=== PATIENT | male | born 1965 | race African-American/Black ===

== ENCOUNTER 2018-09-17 12:07 | Inpatient (IN) | payer OTHER ==
[2018-09-17 14:30] VITALS: BMI 32.8
--- NOTE | 2018-09-17 16:23 | HP ---
COWS - Scale Resting Pulse: 1= SC 81-100 Sweatin= Chills/Flushing Restless Observation: 0= Sits Still Pupil Size: 1= Pupils >than Normal Bone or Joint Aches: 1= Mild Discomfort Runny Nose/ Eye Tearin= Runny Nose/Eyes GI Upset > 30mins: 2= Nausea/Diarrhea Tremor Observation: 0= None Yawning Observation: 4= Several Times/Minute Anxiety or Irritability: 2=Irritable/Anxious Goose Flesh Skin: 0=Smooth Skin COWS Score: 14 CIWA Score Nausea/Vomitin Muscle Tremors: 2 Anxiety: 3 Agitation: 0-Normal Activity Paroxysmal Sweats: 2 Orientation: 1-Uncertain about Date Tacttile Disturbances: 0-None Auditory Disturbances: 0-None Visual Disturbances: 0-None Headache: 0-None Present CIWA-Ar Total Score: 11 - Admission Criteria OASAS Guidelines: Admission for Medically Managed Detox: Requires at least one of the followin. CIWA greater than 12 2. Seizures within the past 24 hours 3. Delirium tremens within the past 24 hours 4. Hallucinations within the past 24 hours 5. Acute intervention needed for co occurring medical disorder 6. Acute intervention needed for co occurring psychiatric disorder 7. Severe withdrawal that cannot be handled at a lower level of care (continued vomiting, continued diarrhea, abnormal vital signs) requiring intravenous medication and/or fluids 8. Patient presents the following: Acute intervention needed for co-occurring med or psych disorder Admission Criteria Met: Admission criteria met Admission ROS [facility] - [facility] Chief Complaint: alcohol and heroin detox Allergies/Adverse Reactions: Allergies Allergy/AdvReac Type Severity Reaction Status Date / Time Sulfa (Sulfonamide Allergy Severe Rash Verified 09/17/18 15:28 Antibiotics) lactose [Lactose] AdvReac Unknown LACTOSE Verified 09/17/18 15:28 INTOLERANT History of Present Illness: 53 yo male with hx of nicotine, heroin (nasal), cocaine, alcohol dependence is here seeking detox. PMMX: HTN, HIV, Depression. Denies hx of seizures, overdose or blackouts. Longest period of sobriety three years, reports relapse one year ago. Exam Limitations: No Limitations - Ebola screening Have you traveled outside of the country in the last 21 days: No Have you had contact with anyone from an Ebola affected area: No Have you been sick,other than usual withdrawal symptoms: No - Review of Systems Constitutional: Loss of Appetite, Changes in sleep (no sleep past three days), Other (fatigue) EENT: reports: Nose Congestion Respiratory: reports: No Symptoms reported Cardiac: reports: No Symptoms Reported GI: reports: Constipated (last BM this morning), Nausea, Poor Appetite, Indigestion : reports: No Symptoms Reported Musculoskeletal: reports: Back Pain (low back), Joint Pain Integumentary: reports: No Symptoms Reported Endocrine: reports: Increased Thirst Hematology: reports: See HPI Psychiatric: reports: Orientated x3 Other Systems: Reviewed and Negative Patient History - Patient Medical History Hx Anemia: No Hx Asthma: No Hx Chronic Obstructive Pulmonary Disease (COPD): No Hx Cancer: No Hx Cardiac Disorders: No Hx Congestive Heart Failure: No Hx Hypertension: Yes Hx Hypercholesterolemia: No Hx Pacemaker: No HX Cerebrovascular Accident: No Hx Seizures: No Hx Dementia: No Hx Diabetes: Yes Hx Gastrointestinal Disorders: No Hx Liver Disease: No Hx Genitourinary Disorders: No Hx Sexually Transmitted Disorders: No Hx Renal Disease (ESRD): No Hx Thyroid Disease: No Hx Human Immunodeficiency Virus (HIV): Yes (since 1995) Hx Hepatitis C: No Hx Depression: Yes Hx Suicide Attempt: No Hx Bipolar Disorder: No Hx Schizophrenia: No - Patient Surgical History Past Surgical History: Yes Hx Neurologic Surgery: No Hx Cataract Extraction: No Hx Cardiac Surgery: No Hx Lung Surgery: No Hx Breast Surgery: No Hx Breast Biopsy: No Hx Abdominal Surgery: No Hx Appendectomy: No Hx Cholecystectomy: No Hx Genitourinary Surgery: No Hx Section: No Hx Orthopedic Surgery: Yes (right ankle in 2000 for fx) Anesthesia Reaction: No - PPD History Previous Implant?: No Documented Results: Positive w/o proof Results: PPD+ 1995 - Reproductive History Patient : No - Smoking Cessation Smoking history: Current every day smoker Have you smoked in the past 12 months: Yes Aproximately how many cigarettes per day: 20 Cigars Per Day: 0 Hx Chewing Tobacco Use: No Initiated information on smoking cessation: Yes 'Breaking Loose' booklet given: 09/17/18 - Substance & Tx. History Hx Alcohol Use: Yes Hx Substance Use: Yes Substance Use Type: Heroin Hx Substance Use Treatment: Yes ([facility] 2013) - Substances Abused Heroin Route: Inhalation Frequency: Daily Amount used: 3 bags Age of first use: 31 Date of Last Use: 09/17/18 Alcohol Route: Oral Frequency: Daily Amount used: 1/4 vodka, 2 beers ( 40 oz bottles. Age of first use: 14 Date of Last Use: 09/17/18 Cocaine Route: Smoking Frequency: Daily Amount used: $150 Age of first use: 23 Date of Last Use: 09/17/18 Family Disease History - Family Disease History Family History: Denies Admission Physical Exam [facility] - Vital Signs Vital Signs: Vital Signs - 24 hr 09/17/18 14:26 Temperature 97.1 F L Pulse Rate 81 Respiratory 20 Rate Blood Pressure 125/75 - Physical General Appearance: Yes: Appropriately Dressed, Sweating, Anxious HEENTM: Yes: EOMI, Hearing grossly Normal, Normal ENT Inspection, Normocephalic , Normal Voice, GIANNI, Pharynx Normal, Tm's normal, Rhinorrhea Respiratory: Yes: Chest Non-Tender, Lungs Clear, Normal Breath Sounds, No Respiratory Distress, No Accessory Muscle Use Neck: Yes: No masses,lesions,Nodules, Trachea in good position Breast: Yes: Breast Exam Deferred Cardiology: Yes: Regular Rhythm, Regular Rate Abdominal: Yes: Normal Bowel Sounds, Non Tender, Flat, Soft Genitourinary: Yes: Within Normal Limits Back: Yes: Normal Inspection Musculoskeletal: Yes: full range of Motion, Gait Steady, Pelvis Stable, Back pain Extremities: Yes: Normal Capillary Refill, Normal Inspection, Normal Range of Motion 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 NML intact, Fully Oriented, Alert, Motor Strength 5/5, Depressed Affect Integumentary: Yes: Normal Color, Warm, Diaphoresis Lymphatic: Yes: Within Normal Limits - Diagnostic (1) HIV (human immunodeficiency virus infection) Current Visit: Yes Status: Acute (2) Alcohol dependence with uncomplicated withdrawal Current Visit: Yes Status: Acute (3) Opioid dependence with withdrawal Current Visit: Yes Status: Acute (4) Essential hypertension Current Visit: No Status: Acute (5) Low back pain Current Visit: Yes Status: Acute Qualifiers: Chronicity: acute Back pain laterality: midline (6) Nicotine dependence Current Visit: No Status: Acute Cleared for Admission [facility] - Detox or Rehab [facility] Level of Care: Medically Managed Detox Regimen/Protocol: Methadone/Librium [facility] Breath Alcohol Content Breath Alcohol Content: 0 Urine Drug Screen - Results Drug Screen Negative: No Urine Drug Screen Results: ANDREW-Cocaine, OPI-Opiates, BZO-Benzodiazepines, OXY- Oxycodone Inpatient Rehab Admission - Rehab Decision to Admit Inpatient rehab admission?: No
[2018-09-17] MEDS ORDERED: BISMUTH SUBSALICYLATE 524 MG/30 ML UD PO PRN (16:25)
[2018-09-17] MEDS ORDERED: IBUPROFEN 600 MG TABLET (FP) PO PRN (16:25)
[2018-09-17] MEDS ORDERED: MENTHOL/PHENOL 1 EACH UD MM PRN (16:25)
[2018-09-17] MEDS ORDERED: METHOCARBAMOL 500 MG TABLET PO PRN (16:25)
[2018-09-17] MEDS ORDERED: chlordiazePOXIDE HCL 25 MG CAPSULE PO PRN (16:25)
[2018-09-17] MEDS ORDERED: NICOTINE POLACRILEX 4 MG GUM BUC PRN (16:25)
[2018-09-17] MEDS ORDERED: MAGNESIUM CITRATE 300 ML BOTTLE PO PRN (16:25)
[2018-09-17] MEDS ORDERED: MAG HYDROX/AL HYDROX/SIMETH 30 ML UNIT-DOSE CUP PO PRN (16:25)
[2018-09-17] MEDS ORDERED: MAGNESIUM HYDROX 2400MG/30ML ORAL SUSPENSION 30 ML CUP PO PRN (16:25)
[2018-09-17] MEDS ORDERED: ACETAMINOPHEN 325 MG TABLET (FP) PO PRN ×2 (16:25)
[2018-09-17] MEDS ORDERED: METHADONE HCL 10 MG TABLET (FOR DETOX USE ONLY) PO ONE ×2 (17:30→23:00)
[2018-09-17] MEDS: chlordiazePOXIDE HCL 25 MG CAPSULE PO SCH (22:45)
[2018-09-17] MEDS: THIAMINE HCL 100 MG TABLET (FP) PO SCH (22:46)
[2018-09-18] MEDS: chlordiazePOXIDE HCL 25 MG CAPSULE PO SCH ×4 (05:51→22:42)
[2018-09-18] MEDS ORDERED: METHADONE HCL 5 MG TABLET (FOR DETOX USE ONLY) PO ONE (10:00)
[2018-09-18] MEDS: PRENATAL VITAMINS W/ FOLIC ACID TABLET (FP) PO SCH (10:56)
[2018-09-18] MEDS: amLODIPine BESYLATE 10 MG TABLET (FP) PO SCH (10:56)
[2018-09-18] MEDS: ASPIRIN COATED 81 MG TABLET.EC PO SCH (10:56)
[2018-09-18] MEDS: NICOTINE 21 MG/24 HOURS TOPICAL PATCH TD SCH (10:56)
[2018-09-18] MEDS: cloNIDine HCL 0.1 MG TABLET PO PRN (10:58)
[2018-09-18 11:03] LABS: HEMATOCRIT 38.6 % (35.4-49); HEMOGLOBIN 12.6 GM/dL (11.7-16.9); MCH 29.1 pg (25.7-33.7); MCHC 32.6 g/dl (32.0-35.9); MEAN CELL VOLUME 89.5 fl (80-96); MEAN PLT VOLUME 7.9 fl (7.5-11.1); PLATELET COUNT 198 K/MM3 (134-434); RBC 4.31 M/mm3 (4.00-5.60); RDW 15.3 % (11.9-15.9); WHITE BLOOD COUNT 5.7 K/mm3 (4.0-10.0)
--- NOTE | 2018-09-18 11:03 | EKG ---
Test Reason : Blood Pressure : / mmHG Vent. Rate : 070 BPM Atrial Rate : 070 BPM P-R Int : 116 ms QRS Dur : 084 ms QT Int : 400 ms P-R-T Axes : 064 069 054 degrees QTc Int : 432 ms NORMAL SINUS RHYTHM NORMAL ECG NO PREVIOUS ECGS AVAILABLE Confirmed by STEPH GAN MD ([id number]) on 09/18/2018 11:02:52 AM Referred By: Confirmed By:STEHP GAN MD
[2018-09-18 12:37] LABS: ALBUMIN 2.6 g/dl (3.4-5.0); ALK PHOS 78 U/L (45-117); ANION GAP 5 MMOL/L (8-16); BILIRUBIN,TOTAL 0.3 mg/dL (0.2-1); BLOOD UREA NITROGEN 14 mg/dL (7-18); CALCIUM 8.4 mg/dL (8.5-10.1); CHLORIDE 112 mmol/L (98-107); CO2 28 mmol/L (21-32); CREATININE 1.3 mg/dL (0.55-1.3); GLUCOSE,RANDOM 133 mg/dL (74-106); POTASSIUM 3.9 mmol/L (3.5-5.1); SGOT/AST 8 U/L (15-37); SGPT/ALT 15 U/L (13-61); SODIUM 145 mmol/L (136-145)
[2018-09-18] MEDS: LIDOCAINE 5% TOPICAL PATCH TP SCH (14:53)
--- NOTE | 2018-09-18 15:09 | PN ---
S CIWA - CIWA Score Nausea/Vomitin-No Nausea/No Vomiting Muscle Tremors: 3 Anxiety: 3 Agitation: 1-Slight > Activity Paroxysmal Sweats: 2 Orientation: 0-Oriented Tacttile Disturbances: 2-Mild Itch/Numbness/Burn Auditory Disturbances: 2-Mild Harshness/Frighten Visual Disturbances: 0-None Headache: 2-Mild CIWA-Ar Total Score: 15 BHS COWS - Scale Resting Pulse: 1= IA 81-100 Sweatin= Chills/Flushing Restless Observation: 1= Difficult to Sit Still Pupil Size: 0= Normal to Room Light Bone or Joint Aches: 0= None Runny Nose/ Eye Tearin= None GI Upset > 30mins: 2= Nausea/Diarrhea Tremor Observation of Outstretched Hands: 2= Slight Tremor Visible Yawning Observation: 1= 1-2x During Session Anxiety or Irritability: 2=Irritable/Anxious Goose Flesh Skin: 3=Piloerection COWS Score: 13 BHS Progress Note (SOAP) Subjective: Anxious, Nausea, Tremors, H/A. Objective: PATIENT A & O X 3, OBSERVED AMBULATING ON UNIT. IN NO ACUTE DISTRESS. 09/18/18 15:10 Vital Signs Temperature 99.1 F 09/18/18 14:09 Pulse Rate 81 09/18/18 14:09 Respiratory Rate 16 09/18/18 14:09 Blood Pressure 120/77 09/18/18 14:09 O2 Sat by Pulse Oximetry (%) Laboratory Tests 09/18/18 09/18/18 09/18/18 07:30 07:30 07:30 WBC 5.7 RBC 4.31 Hgb 12.6 Hct 38.6 MCV 89.5 MCH 29.1 MCHC 32.6 RDW 15.3 Plt Count 198 D MPV 7.9 Sodium 145 Potassium 3.9 Chloride 112 H Carbon Dioxide 28 Anion Gap 5 L BUN 14 Creatinine 1.3 Creat Clearance w eGFR 57.97 Random Glucose 133 H Calcium 8.4 L Total Bilirubin 0.3 AST 8 L ALT 15 Alkaline Phosphatase 78 Total Protein 6.0 L Albumin 2.6 L RPR Titer Nonreactive LABS NOTED. Assessment: 09/18/18 15:12 WITHDRAWAL SYMPTOMS. HYPERGLYCEMIA. 09/18/18 15:12 Plan: CONTINUE DETOX. INCREASE DAILY PO FLUID INTAKE. BGM ACBK FOR ELEVATED ADMISSION GLUCOSE LEVEL.
[2018-09-18] MEDS: THIAMINE HCL 100 MG TABLET (FP) PO SCH (22:42)
[2018-09-18] MEDS: LIDOCAINE PATCH REMOVAL MC SCH (22:42)
[2018-09-19] MEDS: chlordiazePOXIDE HCL 25 MG CAPSULE PO SCH ×3 (05:42→18:25)
[2018-09-19] MEDS ORDERED: METHADONE HCL 10 MG TABLET (FOR DETOX USE ONLY) PO ONE (10:00)
[2018-09-19] MEDS: ASPIRIN COATED 81 MG TABLET.EC PO SCH (10:03)
[2018-09-19] MEDS: amLODIPine BESYLATE 10 MG TABLET (FP) PO SCH (10:03)
[2018-09-19] MEDS: NICOTINE 21 MG/24 HOURS TOPICAL PATCH TD SCH (10:03)
[2018-09-19] MEDS: PRENATAL VITAMINS W/ FOLIC ACID TABLET (FP) PO SCH (10:03)
[2018-09-19] MEDS: LIDOCAINE 5% TOPICAL PATCH TP SCH (10:06)
--- NOTE | 2018-09-19 14:00 | PN ---
S CIWA - CIWA Score Nausea/Vomitin Muscle Tremors: 2 Anxiety: 2 Paroxysmal Sweats: 2 Orientation: 0-Oriented Tacttile Disturbances: 1-Very Mild Itch/Numbness Auditory Disturbances: 1-Very Mild Visual Disturbances: 0-None Headache: 2-Mild BHS COWS - Scale Resting Pulse: 1= MI 81-100 Sweatin= Chills/Flushing Restless Observation: 1= Difficult to Sit Still Pupil Size: 1= Pupils >than Normal Bone or Joint Aches: 2= Severe Diffuse Aches Runny Nose/ Eye Tearin= Runny Nose/Eyes GI Upset > 30mins: 2= Nausea/Diarrhea Tremor Observation of Outstretched Hands: 2= Slight Tremor Visible Yawning Observation: 1= 1-2x During Session Anxiety or Irritability: 2=Irritable/Anxious Goose Flesh Skin: 0=Smooth Skin COWS Score: 15 S Progress Note (SOAP) Subjective: alert,irritable,anxious,interrupted sleep,pain in the body and back Objective: 09/19/18 13:57 Vital Signs Temperature 98.2 F 09/19/18 13:48 Pulse Rate 87 09/19/18 13:48 Respiratory Rate 18 09/19/18 13:48 Blood Pressure 152/104 H 09/19/18 13:48 O2 Sat by Pulse Oximetry (%) 09/19/18 13:57 Laboratory Last Values WBC 5.7 K/mm3 (4.0-10.0) 09/18/18 07:30 RBC 4.31 M/mm3 (4.00-5.60) 09/18/18 07:30 Hgb 12.6 GM/dL (11.7-16.9) 09/18/18 07:30 Hct 38.6 % (35.4-49) 09/18/18 07:30 MCV 89.5 fl (80-96) 09/18/18 07:30 MCH 29.1 pg (25.7-33.7) 09/18/18 07:30 MCHC 32.6 g/dl (32.0-35.9) 09/18/18 07:30 RDW 15.3 % (11.9-15.9) 09/18/18 07:30 Plt Count 198 K/MM3 (134-434) D 09/18/18 07:30 MPV 7.9 fl (7.5-11.1) 09/18/18 07:30 Sodium 145 mmol/L (136-145) 09/18/18 07:30 Potassium 3.9 mmol/L (3.5-5.1) 09/18/18 07:30 Chloride 112 mmol/L (98-107) H 09/18/18 07:30 Carbon Dioxide 28 mmol/L (21-32) 09/18/18 07:30 Anion Gap 5 MMOL/L (8-16) L 09/18/18 07:30 BUN 14 mg/dL (7-18) 09/18/18 07:30 Creatinine 1.3 mg/dL (0.55-1.3) 09/18/18 07:30 Creat Clearance w eGFR 57.97 (>60) 09/18/18 07:30 POC Glucometer 123 UNITS (80-120) 09/19/18 05:40 Random Glucose 133 mg/dL (74-106) H 09/18/18 07:30 Calcium 8.4 mg/dL (8.5-10.1) L 09/18/18 07:30 Total Bilirubin 0.3 mg/dL (0.2-1) 09/18/18 07:30 AST 8 U/L (15-37) L 09/18/18 07:30 ALT 15 U/L (13-61) 09/18/18 07:30 Alkaline Phosphatase 78 U/L (45-117) 09/18/18 07:30 Total Protein 6.0 g/dl (6.4-8.2) L 09/18/18 07:30 Albumin 2.6 g/dl (3.4-5.0) L 09/18/18 07:30 RPR Titer Nonreactive (NONREACTIVE) 09/18/18 07:30 09/19/18 13:58 fasting glucose 123 Assessment: 09/19/18 13:58 withdrawal symptom Plan: continue detox
[2018-09-19] MEDS: cloNIDine HCL 0.1 MG TABLET PO PRN (14:17)
[2018-09-19] MEDS: chlordiazePOXIDE HCL 10 MG CAPSULE PO SCH (22:01)
[2018-09-19] MEDS: MELATONIN 5 MG TABLETS PO PRN (22:02)
[2018-09-19] MEDS: THIAMINE HCL 100 MG TABLET (FP) PO SCH (22:02)
[2018-09-19] MEDS ORDERED: chlordiazePOXIDE HCL 10 MG CAPSULE PO PRN (23:00)
[2018-09-19] MEDS: LIDOCAINE PATCH REMOVAL MC SCH (23:10)
[2018-09-20] MEDS: chlordiazePOXIDE HCL 10 MG CAPSULE PO SCH ×4 (05:37→17:10)
[2018-09-20] MEDS ORDERED: METHADONE HCL 5 MG TABLET (FOR DETOX USE ONLY) PO ONE (06:00)
[2018-09-20] MEDS: amLODIPine BESYLATE 10 MG TABLET (FP) PO SCH (10:03)
[2018-09-20] MEDS: PRENATAL VITAMINS W/ FOLIC ACID TABLET (FP) PO SCH (10:03)
[2018-09-20] MEDS: ASPIRIN COATED 81 MG TABLET.EC PO SCH (10:03)
[2018-09-20] MEDS: NICOTINE 21 MG/24 HOURS TOPICAL PATCH TD SCH (10:04)
[2018-09-20] MEDS: LIDOCAINE 5% TOPICAL PATCH TP SCH (10:05)
[2018-09-20 13:28] VITALS: TEMP 98.2
--- NOTE | 2018-09-20 16:04 | PN ---
BHS Progress Note (SOAP) Subjective: sweats Objective: 09/20/18 15:59 A & O x 3 in room Vital Signs Temperature 98.2 F 09/20/18 13:28 Pulse Rate 87 09/20/18 13:28 Respiratory Rate 18 09/20/18 13:28 Blood Pressure 150/97 09/20/18 13:28 O2 Sat by Pulse Oximetry (%) Assessment: 09/20/18 15:59 withdrawal sx Plan: continue detox
[2018-09-20] MEDS: THIAMINE HCL 100 MG TABLET (FP) PO SCH (22:11)
[2018-09-20] MEDS: MELATONIN 5 MG TABLETS PO PRN (22:11)
[2018-09-20] MEDS: LIDOCAINE PATCH REMOVAL MC SCH (22:11)
[2018-09-20] MEDS ORDERED: chlordiazePOXIDE HCL 10 MG CAPSULE PO SCH (23:00)
[2018-09-21 06:32] VITALS: BP 145/78; PULSE 80
--- NOTE | 2018-09-21 12:04 | DS ---
[facility] Detox Discharge Summary Admission Date: 09/17/18 Discharge Date: 09/21/18 - History Present History: Alcohol Dependence, Cocaine Dependence, Opioid Dependence Additional Comments: Patient requested to be discharged today because he completed detox and [facility]. Patient is concerned that if he leaves here tomorrow morning, he will be late for his appointment. Patient made aware that his program might refuse him seeing that he will be going there straight from home instead of from here. Patient stated that the program is a walk in program and all they have to do is test his urine for substance use. Patient stated he has no plan to use illicit drugs and that he will be going to his appointment tomorrow as scheduled. Patient also told advertising writer that he has DM and was on metformin which his PCP stopped because he had changed his lifestyle and was doing good. Patient stated he hasn't been eating healthy as he should. He refused fingerstick. Patient instructed to follow up with his PCP for management of all medical problems. Patient is A/A/Ox3, in nad. Patient is stable for discharge today. Pertinent Past History: DM HTN Obesity Nicotine dependence Alcohol dependence Cocaine dependence Opioid dependence HIV Depression PPD Positive - Physical Exam Results Vital Signs: Vital Signs Temperature 98.2 F 09/21/18 06:00 Pulse Rate 80 09/21/18 06:00 Respiratory Rate 18 09/21/18 06:00 Blood Pressure 145/78 09/21/18 06:00 O2 Sat by Pulse Oximetry (%) Pertinent Admission Physical Exam Findings: Withdrawal symptoms Laboratory Tests 09/18/18 09/18/18 09/18/18 07:30 07:30 07:30 WBC 5.7 RBC 4.31 Hgb 12.6 Hct 38.6 MCV 89.5 MCH 29.1 MCHC 32.6 RDW 15.3 Plt Count 198 D MPV 7.9 Sodium 145 Potassium 3.9 Chloride 112 H Carbon Dioxide 28 Anion Gap 5 L BUN 14 Creatinine 1.3 Creat Clearance w eGFR 57.97 POC Glucometer Random Glucose 133 H Calcium 8.4 L Total Bilirubin 0.3 AST 8 L ALT 15 Alkaline Phosphatase 78 Total Protein 6.0 L Albumin 2.6 L RPR Titer Nonreactive 09/19/18 05:40 WBC RBC Hgb Hct MCV MCH MCHC RDW Plt Count MPV Sodium Potassium Chloride Carbon Dioxide Anion Gap BUN Creatinine Creat Clearance w eGFR POC Glucometer 123 Random Glucose Calcium Total Bilirubin AST ALT Alkaline Phosphatase Total Protein Albumin RPR Titer Labs reviewed: serum creat 1.3, GFR 57.97, serum gluc 133, FS 123mg/dl Prerenal azotemia: encouraged PO water hydration. Follow up with PCP - Treatment Hospital Course: Detox Protocol Followed, Detoxed Safely, Responded well, Discharged Condition Good, Rehab Referral Accepted - Medication Discharge Medications: Ambulatory Orders Amlodipine Besylate [Norvasc -] 10 mg PO DAILY #30 tablet 08/25/13 Gabapentin 800 mg PO BID #60 tablet 08/25/13 Aspirin Coated [Ecotrin -] 81 mg PO DAILY 10/02/13 Ibuprofen [Motrin -] 600 mg PO Q6H PRN 10/02/13 - Diagnosis (1) Type 2 diabetes mellitus with hyperglycemia Status: Chronic (2) Obesity (BMI 30.0-34.9) Status: Chronic (3) Depression Status: Chronic (4) PPD positive Status: Chronic (5) Cocaine dependence Status: Chronic (6) Alcohol dependence with uncomplicated withdrawal Status: Acute (7) Essential hypertension Status: Chronic (8) HIV (human immunodeficiency virus infection) Status: Acute (9) Nicotine dependence Status: Chronic (10) Opioid dependence with withdrawal Status: Acute - AMA Did Patient Leave Against Medical Advice: No (F/U with PCP after completion of inpatient rehab at [facility])
== END 2018-09-21 09:35 | disposition home or self-care (01) | DRG 773 ==
LOC: YASAS 12:07 → Y6N 17:08
PROVIDERS: ADMIT Surgery; ATTEND Surgery
PROC: HZ2ZZZZ Detoxification Services for Substance Abuse Treatment (ICD-10-PCS; principal; 2018-09-17)
DX: F11.23 Opioid dependence with withdrawal (principal); F10.230 Alcohol dependence with withdrawal, uncomplicated; F14.20 Cocaine dependence, uncomplicated; F17.210 Nicotine dependence, cigarettes, uncomplicated; F32.9 Major depressive disorder, single episode, unspecified; Z21 Asymptomatic human immunodeficiency virus [HIV] infection status; I10 Essential (primary) hypertension; E11.65 Type 2 diabetes mellitus with hyperglycemia; Z79.84 Long term (current) use of oral hypoglycemic drugs; M54.5 Low back pain; R76.11 Nonspecific reaction to tuberculin skin test without active tuberculosis; E66.9 Obesity, unspecified; Z68.32 Body mass index [BMI] 32.0-32.9, adult; Z88.2 Allergy status to sulfonamides
CPT/HCPCS: 36415; 71046-TC-FY; 80053; 82962; 85027; 86593; 93005; 93010; J0735

== ENCOUNTER 2018-11-15 17:48 | Inpatient (IN) | payer OTHER ==
--- NOTE | 2018-11-15 20:39 | HP ---
COWS - Scale Resting Pulse: 1= OR 81-100 Sweatin=Flushed/Facial Moisture Restless Observation: 1= Difficult to Sit Still Pupil Size: 1= Pupils >than Normal Bone or Joint Aches: 1= Mild Discomfort Runny Nose/ Eye Tearin= Runny Nose/Eyes GI Upset > 30mins: 2= Nausea/Diarrhea Tremor Observation: 2= Slight Tremor Visible Yawning Observation: 0= None Anxiety or Irritability: 1=Feels Anxious/Irritable Goose Flesh Skin: 0=Smooth Skin COWS Score: 13 CIWA Score Nausea/Vomitin Muscle Tremors: 3 Anxiety: 2 Agitation: 2 Paroxysmal Sweats: 2 Orientation: 0-Oriented Tacttile Disturbances: 2-Mild Itch/Numbness/Burn Auditory Disturbances: 2-Mild Harshness/Frighten Visual Disturbances: 2-Mild Sensitivity Headache: 1-Very Mild CIWA-Ar Total Score: 18 - Admission Criteria OASAS Guidelines: Admission for Medically Managed Detox: Requires at least one of the followin. CIWA greater than 12 2. Seizures within the past 24 hours 3. Delirium tremens within the past 24 hours 4. Hallucinations within the past 24 hours 5. Acute intervention needed for co occurring medical disorder 6. Acute intervention needed for co occurring psychiatric disorder 7. Severe withdrawal that cannot be handled at a lower level of care (continued vomiting, continued diarrhea, abnormal vital signs) requiring intravenous medication and/or fluids 8. Admission ROS [facility] - HPI Chief Complaint: DEPENDENT ON HEROIN, ETOH AND CRACK Allergies/Adverse Reactions: Allergies Allergy/AdvReac Type Severity Reaction Status Date / Time Sulfa (Sulfonamide Allergy Severe Rash Verified 09/17/18 15:28 Antibiotics) lactose [Lactose] AdvReac Unknown LACTOSE Verified 09/17/18 15:28 INTOLERANT History of Present Illness: THE PT. IS REQUESTING ADMISSION TO THE DETOX UNIT AND CAME FOR MEDICAL CLEARANCE AND H AND PE Exam Limitations: No Limitations - Ebola screening Have you traveled outside of the country in the last 21 days: No Have you had contact with anyone from an Ebola affected area: No Have you been sick,other than usual withdrawal symptoms: No Do you have a fever: No - Review of Systems Constitutional: See HPI, Malaise, Weakness EENT: reports: See HPI, Nose Congestion Respiratory: reports: See HPI Cardiac: reports: See HPI GI: reports: See HPI, Diarrhea, Nausea, Abdominal cramping : reports: No Symptoms Reported, See HPI Musculoskeletal: reports: See HPI, Muscle Pain, Muscle Weakness Integumentary: reports: See HPI, Flushing, Sweating Neuro: reports: See HPI, Headache, Tremors, Weakness Endocrine: reports: See HPI Hematology: reports: See HPI Psychiatric: reports: Judgement Intact, Orientated x3, Anxious, Depressed Patient History - Patient Medical History Hx Anemia: No Hx Asthma: No Hx Chronic Obstructive Pulmonary Disease (COPD): No Hx Cancer: No Hx Cardiac Disorders: No Hx Congestive Heart Failure: No Hx Hypertension: Yes Hx Hypercholesterolemia: No Hx Pacemaker: No HX Cerebrovascular Accident: No Hx Seizures: No Hx Dementia: No Hx Diabetes: Yes Hx Gastrointestinal Disorders: No Hx Liver Disease: No Hx Genitourinary Disorders: No Hx Sexually Transmitted Disorders: No Hx Renal Disease (ESRD): No Hx Thyroid Disease: No Hx Human Immunodeficiency Virus (HIV): Yes (since 1995) Hx Hepatitis C: No Hx Depression: Yes (AND ANXIETY) Hx Suicide Attempt: No Hx Bipolar Disorder: No Hx Schizophrenia: No - Patient Surgical History Past Surgical History: Yes Hx Neurologic Surgery: No Hx Cataract Extraction: No Hx Cardiac Surgery: No Hx Lung Surgery: No Hx Breast Surgery: No Hx Breast Biopsy: No Hx Abdominal Surgery: No Hx Appendectomy: No Hx Cholecystectomy: No Hx Genitourinary Surgery: No Hx Section: No Hx Orthopedic Surgery: Yes (right ankle in 2000 for fx) Anesthesia Reaction: No - PPD History Results: PPD+ 1995 - Smoking Cessation Smoking history: Current every day smoker Have you smoked in the past 12 months: Yes Aproximately how many cigarettes per day: 20 Cigars Per Day: 0 Hx Chewing Tobacco Use: No Initiated information on smoking cessation: Yes 'Breaking Loose' booklet given: 11/15/18 - Substance & Tx. History Hx Alcohol Use: Yes Hx Substance Use: Yes Substance Use Type: Alcohol, Cocaine, Opiates Hx Substance Use Treatment: Yes - Substances abused Heroin Substance route: Inhalation Frequency: Daily Amount used: 5/D Age of first use: 46 Date of last use: 11/15/18 Alcohol Substance route: Oral Frequency: Daily Amount used: 1 QT/D Age of first use: 14 Date of last use: 11/15/18 Crack Substance route: Smoking Frequency: Daily Amount used: $100/D Age of first use: 23 Date of last use: 11/14/18 Family Disease History - Family Disease History Family History: Denies Admission Physical Exam [facility] - Physical General Appearance: Yes: No Apparent Distress, Nourished, Appropriately Dressed , Tremorous, Sweating, Anxious HEENTM: Yes: Hearing grossly Normal, Normocephalic, Normal Voice, GIANNI, Pharynx Normal Respiratory: Yes: Chest Non-Tender, Lungs Clear, Normal Breath Sounds, No Respiratory Distress, No Accessory Muscle Use Neck: Yes: No masses,lesions,Nodules, Supple, Trachea in good position Breast: Yes: Breast Exam Deferred, Axillae without masses Cardiology: Yes: Regular Rhythm, S1, S2, Tachycardia Abdominal: Yes: Normal Bowel Sounds, Non Tender, Protuberent, Distended Back: Yes: Normal Inspection Musculoskeletal: Yes: full range of Motion, Gait Steady, Pelvis Stable, Muscle Pain, Muscle weakness Extremities: Yes: Normal Capillary Refill, Normal Range of Motion, Non-Tender, Tremors 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 NML intact, Fully Oriented, Alert, Motor Strength 5/5, Normal Response, Depressed Affect Integumentary: Yes: Normal Color, Warm, Moist Lymphatic: Yes: Within Normal Limits Cleared for Admission [facility] - Detox or Rehab [facility] Level of Care: Medically Supervised Breathalyzer - Breathalyzer Breathalyzer: 0 Urine Drug Screen - Test Device Lot number: [id number] Expiration date: 09/28/19 - Control Is test valid?: Yes - Results Drug screen NEGATIVE: No Urine drug screen results: ANDREW-Cocaine, MOP-Opiates Inpatient Rehab Admission - Rehab Decision to Admit Inpatient rehab admission?: No
[2018-11-15] MEDS ORDERED: MELATONIN 5 MG TABLETS PO PRN (20:46)
[2018-11-15] MEDS ORDERED: cloNIDine HCL 0.1 MG TABLET PO PRN (20:46)
[2018-11-15] MEDS ORDERED: chlordiazePOXIDE HCL 10 MG CAPSULE PO PRN (20:46)
[2018-11-15] MEDS ORDERED: MAGNESIUM CITRATE 300 ML BOTTLE PO PRN (20:46)
[2018-11-15] MEDS ORDERED: IBUPROFEN 400 MG TABLET (FP) PO PRN (20:46)
[2018-11-15] MEDS ORDERED: MENTHOL/PHENOL 1 EACH UD MM PRN (20:46)
[2018-11-15] MEDS ORDERED: BISMUTH SUBSALICYLATE 524 MG/30 ML UD PO PRN (20:46)
[2018-11-15] MEDS ORDERED: MAG HYDROX/AL HYDROX/SIMETH 30 ML UNIT-DOSE CUP PO PRN (20:46)
[2018-11-15] MEDS ORDERED: hydrOXYzine PAMOATE 25 MG CAPSULE (FP) PO PRN (20:46)
[2018-11-15] MEDS ORDERED: ACETAMINOPHEN 325 MG TABLET (FP) PO PRN ×2 (20:46)
[2018-11-15] MEDS ORDERED: NICOTINE POLACRILEX 4 MG GUM BUC PRN (20:46)
[2018-11-15] MEDS ORDERED: METHOCARBAMOL 500 MG TABLET PO PRN (20:46)
[2018-11-15] MEDS ORDERED: MAGNESIUM HYDROX 2400MG/30ML ORAL SUSPENSION 30 ML CUP PO PRN (20:46)
[2018-11-15] MEDS ORDERED: PATIENT'S OWN MEDICATION (NON-FORMULARY) (Gabapentin [Gabapentin] 800 MG) PO SCH (22:00)
[2018-11-15 22:21] VITALS: BMI 31.7
[2018-11-15] MEDS ORDERED: METHADONE HCL 10 MG TABLET (FOR DETOX USE ONLY) PO ONE ×2 (22:45→23:00)
[2018-11-15] MEDS ORDERED: chlordiazePOXIDE HCL 25 MG CAPSULE PO ONE (22:45)
[2018-11-15] MEDS: GABAPENTIN 400 MG CAPSULE (FP) PO SCH (23:32)
[2018-11-15] MEDS: THIAMINE HCL 100 MG TABLET (FP) PO SCH (23:32)
[2018-11-15] MEDS: amLODIPine BESYLATE 10 MG TABLET (FP) PO SCH (23:33)
[2018-11-15] MEDS: chlordiazePOXIDE HCL 25 MG CAPSULE PO SCH (23:41)
[2018-11-16] MEDS: chlordiazePOXIDE HCL 25 MG CAPSULE PO SCH ×2 (05:41→12:58)
[2018-11-16] MEDS: metFORMIN HCL 500 MG TABLET (FP) PO SCH ×2 (06:19→17:38)
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
[2018-11-16] MEDS ORDERED: METHADONE HCL 5 MG TABLET (FOR DETOX USE ONLY) PO ONE (10:00)
--- NOTE | 2018-11-16 10:16 | PN ---
S CIWA - CIWA Score Nausea/Vomitin-Mild Nausea/No Vomiting Muscle Tremors: 3 Anxiety: 2 Agitation: 2 Paroxysmal Sweats: 1-Minimal Palms Moist Orientation: 2-Disoriented Date<2 days Tacttile Disturbances: 0-None Auditory Disturbances: 0-None Visual Disturbances: 0-None Headache: 2-Mild CIWA-Ar Total Score: 13 BHS COWS - Scale Resting Pulse: 0= [place] 80 or Below Sweatin= Chills/Flushing Restless Observation: 0= Sits Still Pupil Size: 0= Normal to Room Light Bone or Joint Aches: 1= Mild Discomfort Runny Nose/ Eye Tearin= Nasal Congestion GI Upset > 30mins: 2= Nausea/Diarrhea Tremor Observation of Outstretched Hands: 2= Slight Tremor Visible Yawning Observation: 2= >3x During Session Anxiety or Irritability: 2=Irritable/Anxious Goose Flesh Skin: 0=Smooth Skin COWS Score: 11 BHS Progress Note (SOAP) Subjective: doing ok with librium and methadone detox regimen indigestion refuses zantac discontinue motrin requests beatriz shyam denies vomiting tolerate food and fluid well Objective: 11/16/18 10:17 Vital Signs Temperature 98.4 F 11/16/18 09:13 Pulse Rate 64 11/16/18 09:13 Respiratory Rate 18 11/16/18 09:13 Blood Pressure 124/67 11/16/18 09:13 O2 Sat by Pulse Oximetry (%) 11/16/18 10:17 lab pending Assessment: 11/16/18 10:17 alcohol and opiate withdrawal sx Plan: continue detox
[2018-11-16 10:24] LABS: ALBUMIN 2.8 g/dl (3.4-5.0); BILIRUBIN,TOTAL 0.2 mg/dL (0.2-1); CALCIUM 8.9 mg/dL (8.5-10.1); CREATININE 1.2 mg/dL (0.55-1.3); POTASSIUM 3.5 mmol/L (3.5-5.1); TOT PROT 6.3 g/dl (6.4-8.2)
[2018-11-16 10:28] LABS: HEMATOCRIT 42.2 % (35.4-49); HEMOGLOBIN 13.3 GM/dL (11.7-16.9); MCH 28.6 pg (25.7-33.7); MCHC 31.6 g/dl (32.0-35.9); MEAN CELL VOLUME 90.6 fl (80-96); MEAN PLT VOLUME 8.1 fl (7.5-11.1); PLATELET COUNT 201 K/MM3 (134-434); RBC 4.65 M/mm3 (4.00-5.60); RDW 15.7 % (11.9-15.9); WHITE BLOOD COUNT 8.1 K/mm3 (4.0-10.0)
[2018-11-16] MEDS: amLODIPine BESYLATE 10 MG TABLET (FP) PO SCH (10:31)
[2018-11-16] MEDS: GABAPENTIN 400 MG CAPSULE (FP) PO SCH ×2 (10:31→22:19)
[2018-11-16] MEDS: NICOTINE 21 MG/24 HOURS TOPICAL PATCH TD SCH (10:31)
[2018-11-16] MEDS: PRENATAL VITAMINS W/ FOLIC ACID TABLET (FP) PO SCH (10:31)
[2018-11-16] MEDS: chlordiazePOXIDE 5 MG CAPSULE PO SCH (22:19)
[2018-11-16] MEDS: THIAMINE HCL 100 MG TABLET (FP) PO SCH (22:19)
[2018-11-17] MEDS: chlordiazePOXIDE 5 MG CAPSULE PO SCH ×2 (05:49→14:56)
[2018-11-17] MEDS: metFORMIN HCL 500 MG TABLET (FP) PO SCH ×2 (06:10→17:24)
[2018-11-17] MEDS ORDERED: METHADONE HCL 10 MG TABLET (FOR DETOX USE ONLY) PO ONE (10:00)
[2018-11-17] MEDS: GABAPENTIN 400 MG CAPSULE (FP) PO SCH ×2 (10:35→22:20)
[2018-11-17] MEDS: NICOTINE 21 MG/24 HOURS TOPICAL PATCH TD SCH (10:35)
[2018-11-17] MEDS: PRENATAL VITAMINS W/ FOLIC ACID TABLET (FP) PO SCH (10:35)
[2018-11-17] MEDS: amLODIPine BESYLATE 10 MG TABLET (FP) PO SCH (10:35)
--- NOTE | 2018-11-17 12:09 | PN ---
[facility] CIWA - CIWA Score Nausea/Vomitin-Mild Nausea/No Vomiting Muscle Tremors: 3 Anxiety: 2 Agitation: 3 Paroxysmal Sweats: 1-Minimal Palms Moist Orientation: 1-Uncertain about Date Tacttile Disturbances: 0-None Auditory Disturbances: 0-None Visual Disturbances: 0-None Headache: 1-Very Mild CIWA-Ar Total Score: 12 BHS COWS - Scale Resting Pulse: 1= [place] 81-100 Sweatin= Chills/Flushing Restless Observation: 0= Sits Still Pupil Size: 0= Normal to Room Light Bone or Joint Aches: 1= Mild Discomfort Runny Nose/ Eye Tearin= Nasal Congestion GI Upset > 30mins: 1= Stomach Cramp Tremor Observation of Outstretched Hands: 2= Slight Tremor Visible Yawning Observation: 1= 1-2x During Session Anxiety or Irritability: 2=Irritable/Anxious Goose Flesh Skin: 0=Smooth Skin COWS Score: 10 [facility] Progress Note (SOAP) Subjective: body aches irritable hesitate to discuss aftercare poor goal setting for sobriety Objective: 11/17/18 12:09 Vital Signs Temperature 98.2 F 11/17/18 09:23 Pulse Rate 97 H 11/17/18 09:23 Respiratory Rate 20 11/17/18 09:23 Blood Pressure 123/84 11/17/18 09:23 O2 Sat by Pulse Oximetry (%) Laboratory Last Values WBC 8.1 K/mm3 (4.0-10.0) 11/16/18 07:50 RBC 4.65 M/mm3 (4.00-5.60) 11/16/18 07:50 Hgb 13.3 GM/dL (11.7-16.9) 11/16/18 07:50 Hct 42.2 % (35.4-49) 11/16/18 07:50 MCV 90.6 fl (80-96) 11/16/18 07:50 MCH 28.6 pg (25.7-33.7) 11/16/18 07:50 MCHC 31.6 g/dl (32.0-35.9) L 11/16/18 07:50 RDW 15.7 % (11.9-15.9) 11/16/18 07:50 Plt Count 201 K/MM3 (134-434) 11/16/18 07:50 MPV 8.1 fl (7.5-11.1) 11/16/18 07:50 Sodium 142 mmol/L (136-145) 11/16/18 07:50 Potassium 3.5 mmol/L (3.5-5.1) 11/16/18 07:50 Chloride 106 mmol/L (98-107) 11/16/18 07:50 Carbon Dioxide 29 mmol/L (21-32) 11/16/18 07:50 Anion Gap 8 MMOL/L (8-16) 11/16/18 07:50 BUN 10 mg/dL (7-18) 11/16/18 07:50 Creatinine 1.2 mg/dL (0.55-1.3) 11/16/18 07:50 Est GFR (CKD-EPI)AfAm 80.10 11/16/18 07:50 Est GFR (CKD-EPI)NonAf 69.11 11/16/18 07:50 POC Glucometer 129 UNITS (80-120) 11/17/18 05:48 Random Glucose 117 mg/dL (74-106) H 11/16/18 07:50 Calcium 8.9 mg/dL (8.5-10.1) 11/16/18 07:50 Total Bilirubin 0.2 mg/dL (0.2-1) 11/16/18 07:50 AST 11 U/L (15-37) L 11/16/18 07:50 ALT 24 U/L (13-61) 11/16/18 07:50 Alkaline Phosphatase 71 U/L (45-117) 11/16/18 07:50 Total Protein 6.3 g/dl (6.4-8.2) L 11/16/18 07:50 Albumin 2.8 g/dl (3.4-5.0) L 11/16/18 07:50 RPR Titer Nonreactive (NONREACTIVE) 11/16/18 07:50 lab noted Assessment: 11/17/18 12:09 withdrawal sx Plan: continue detox
[2018-11-17] MEDS ORDERED: chlordiazePOXIDE HCL 10 MG CAPSULE PO PRN (21:00)
[2018-11-17] MEDS: chlordiazePOXIDE HCL 10 MG CAPSULE PO SCH (22:20)
[2018-11-17] MEDS: THIAMINE HCL 100 MG TABLET (FP) PO SCH (22:20)
[2018-11-18] MEDS ORDERED: METHADONE HCL 5 MG TABLET (FOR DETOX USE ONLY) PO ONE (06:00)
[2018-11-18] MEDS: metFORMIN HCL 500 MG TABLET (FP) PO SCH ×2 (06:20→17:10)
[2018-11-18] MEDS: chlordiazePOXIDE HCL 10 MG CAPSULE PO SCH ×3 (06:21→22:25)
[2018-11-18] MEDS: NICOTINE 21 MG/24 HOURS TOPICAL PATCH TD SCH (10:11)
[2018-11-18] MEDS: PRENATAL VITAMINS W/ FOLIC ACID TABLET (FP) PO SCH (10:12)
[2018-11-18] MEDS: GABAPENTIN 400 MG CAPSULE (FP) PO SCH ×2 (10:12→22:26)
[2018-11-18] MEDS: amLODIPine BESYLATE 10 MG TABLET (FP) PO SCH (10:12)
--- NOTE | 2018-11-18 15:12 | PN ---
S CIWA - CIWA Score Nausea/Vomitin-Mild Nausea/No Vomiting Muscle Tremors: 2 Anxiety: 2 Agitation: 2 Paroxysmal Sweats: No Perspiration Orientation: 0-Oriented Tacttile Disturbances: 0-None Auditory Disturbances: 0-None Visual Disturbances: 0-None Headache: 1-Very Mild CIWA-Ar Total Score: 8 BHS COWS - Scale Resting Pulse: 0= [place] 80 or Below Sweatin= Chills/Flushing Restless Observation: 1= Difficult to Sit Still Pupil Size: 0= Normal to Room Light Bone or Joint Aches: 1= Mild Discomfort Runny Nose/ Eye Tearin= Nasal Congestion GI Upset > 30mins: 0= None Tremor Observation of Outstretched Hands: 1= Tremor [place], Not Seen Yawning Observation: 0= None Anxiety or Irritability: 1=Feels Anxious/Irritable Goose Flesh Skin: 0=Smooth Skin COWS Score: 6 BHS Progress Note (SOAP) Subjective: feeling better today discuss aftercare with staff patient wants to return to [facility] for alcohol and opiate rehab encourage medication assisted maintenance treatment program Objective: 11/18/18 15:15 Vital Signs Temperature 98.5 F 11/18/18 13:08 Pulse Rate 73 11/18/18 13:08 Respiratory Rate 18 11/18/18 13:08 Blood Pressure 143/89 11/18/18 13:08 O2 Sat by Pulse Oximetry (%) Laboratory Last Values WBC 8.1 K/mm3 (4.0-10.0) 11/16/18 07:50 RBC 4.65 M/mm3 (4.00-5.60) 11/16/18 07:50 Hgb 13.3 GM/dL (11.7-16.9) 11/16/18 07:50 Hct 42.2 % (35.4-49) 11/16/18 07:50 MCV 90.6 fl (80-96) 11/16/18 07:50 MCH 28.6 pg (25.7-33.7) 11/16/18 07:50 MCHC 31.6 g/dl (32.0-35.9) L 11/16/18 07:50 RDW 15.7 % (11.9-15.9) 11/16/18 07:50 Plt Count 201 K/MM3 (134-434) 11/16/18 07:50 MPV 8.1 fl (7.5-11.1) 11/16/18 07:50 Sodium 142 mmol/L (136-145) 11/16/18 07:50 Potassium 3.5 mmol/L (3.5-5.1) 11/16/18 07:50 Chloride 106 mmol/L (98-107) 11/16/18 07:50 Carbon Dioxide 29 mmol/L (21-32) 11/16/18 07:50 Anion Gap 8 MMOL/L (8-16) 11/16/18 07:50 BUN 10 mg/dL (7-18) 11/16/18 07:50 Creatinine 1.2 mg/dL (0.55-1.3) 11/16/18 07:50 Est GFR (CKD-EPI)AfAm 80.10 11/16/18 07:50 Est GFR (CKD-EPI)NonAf 69.11 11/16/18 07:50 POC Glucometer 150 UNITS (80-120) 11/18/18 06:19 Random Glucose 117 mg/dL (74-106) H 11/16/18 07:50 Calcium 8.9 mg/dL (8.5-10.1) 11/16/18 07:50 Total Bilirubin 0.2 mg/dL (0.2-1) 11/16/18 07:50 AST 11 U/L (15-37) L 11/16/18 07:50 ALT 24 U/L (13-61) 11/16/18 07:50 Alkaline Phosphatase 71 U/L (45-117) 11/16/18 07:50 Total Protein 6.3 g/dl (6.4-8.2) L 11/16/18 07:50 Albumin 2.8 g/dl (3.4-5.0) L 11/16/18 07:50 RPR Titer Nonreactive (NONREACTIVE) 11/16/18 07:50 lab noted Assessment: 11/18/18 15:16 alcohol and opiate withdrawal sx Plan: continue detox
[2018-11-18] MEDS: THIAMINE HCL 100 MG TABLET (FP) PO SCH (22:26)
[2018-11-19] MEDS: metFORMIN HCL 500 MG TABLET (FP) PO SCH (06:43)
[2018-11-19 06:44] VITALS: BP 146/91; PULSE 79; TEMP 97.6
[2018-11-19] MEDS ORDERED: chlordiazePOXIDE HCL 10 MG CAPSULE PO SCH (10:00)
--- NOTE | 2018-11-19 13:58 | DS ---
[facility] Detox Discharge Summary Admission Date: 11/15/18 Discharge Date: 11/19/18 - History Present History: Alcohol Dependence, Opioid Dependence Additional Comments: 53 years old male admitted on 11/15/18 for alcohol and opiate withdrawal stabilization completed detox regimen aftercare [facility] Pertinent Past History: bring in medication list and lab report to [facility] - Physical Exam Results Vital Signs: Vital Signs Temperature 97.6 F 11/19/18 06:44 Pulse Rate 79 11/19/18 06:44 Respiratory Rate 18 11/19/18 06:44 Blood Pressure 146/91 11/19/18 06:44 O2 Sat by Pulse Oximetry (%) Pertinent Admission Physical Exam Findings: alcohol and opiate withdrawal sx Laboratory Last Values WBC 8.1 K/mm3 (4.0-10.0) 11/16/18 07:50 RBC 4.65 M/mm3 (4.00-5.60) 11/16/18 07:50 Hgb 13.3 GM/dL (11.7-16.9) 11/16/18 07:50 Hct 42.2 % (35.4-49) 11/16/18 07:50 MCV 90.6 fl (80-96) 11/16/18 07:50 MCH 28.6 pg (25.7-33.7) 11/16/18 07:50 MCHC 31.6 g/dl (32.0-35.9) L 11/16/18 07:50 RDW 15.7 % (11.9-15.9) 11/16/18 07:50 Plt Count 201 K/MM3 (134-434) 11/16/18 07:50 MPV 8.1 fl (7.5-11.1) 11/16/18 07:50 Sodium 142 mmol/L (136-145) 11/16/18 07:50 Potassium 3.5 mmol/L (3.5-5.1) 11/16/18 07:50 Chloride 106 mmol/L (98-107) 11/16/18 07:50 Carbon Dioxide 29 mmol/L (21-32) 11/16/18 07:50 Anion Gap 8 MMOL/L (8-16) 11/16/18 07:50 BUN 10 mg/dL (7-18) 11/16/18 07:50 Creatinine 1.2 mg/dL (0.55-1.3) 11/16/18 07:50 Est GFR (CKD-EPI)AfAm 80.10 11/16/18 07:50 Est GFR (CKD-EPI)NonAf 69.11 11/16/18 07:50 POC Glucometer 145 UNITS (80-120) 11/19/18 05:24 Random Glucose 117 mg/dL (74-106) H 11/16/18 07:50 Calcium 8.9 mg/dL (8.5-10.1) 11/16/18 07:50 Total Bilirubin 0.2 mg/dL (0.2-1) 11/16/18 07:50 AST 11 U/L (15-37) L 11/16/18 07:50 ALT 24 U/L (13-61) 11/16/18 07:50 Alkaline Phosphatase 71 U/L (45-117) 11/16/18 07:50 Total Protein 6.3 g/dl (6.4-8.2) L 11/16/18 07:50 Albumin 2.8 g/dl (3.4-5.0) L 11/16/18 07:50 RPR Titer Nonreactive (NONREACTIVE) 11/16/18 07:50 lab noted - Treatment Hospital Course: Detox Protocol Followed, Detoxed Safely, Responded well, Discharged Condition Good, Rehab Referral Accepted Patient has Accepted a Rehab Referral to: [facility] - Medication Discharge Medications: Ambulatory Orders Amlodipine Besylate [Norvasc -] 10 mg PO DAILY #30 tablet 08/25/13 Gabapentin 800 mg PO BID #60 tablet 08/25/13 Aspirin Coated [Ecotrin -] 81 mg PO DAILY 10/02/13 Ibuprofen [Motrin -] 600 mg PO Q6H PRN 10/02/13 - Diagnosis (1) Alcohol dependence with uncomplicated withdrawal Status: Acute (2) HIV (human immunodeficiency virus infection) Status: Chronic Qualifiers: HIV symptom status: asymptomatic Qualified Code(s): Z21 - Asymptomatic human immunodeficiency virus [HIV] infection status (3) Opioid dependence with withdrawal Status: Acute (4) Essential hypertension Status: Chronic (5) Nicotine dependence Status: Acute Qualifiers: Nicotine product type: cigarettes Substance use status: in withdrawal Qualified Code(s): F17.213 - Nicotine dependence, cigarettes, with withdrawal (6) PPD positive Status: Resolved (7) Type 2 diabetes mellitus with hyperglycemia Status: Chronic Qualifiers: Diabetes mellitus fdc insulin use: without buttermaker continuous churn use Qualified Code(s): E11.65 - Type 2 diabetes mellitus with hyperglycemia - AMA Did Patient Leave Against Medical Advice: No
== END 2018-11-19 08:55 | disposition home or self-care (01) | DRG 773 ==
LOC: YASAS 17:48 → Y3N 22:37
PROVIDERS: ADMIT Surgery; ATTEND Surgery
PROC: HZ2ZZZZ Detoxification Services for Substance Abuse Treatment (ICD-10-PCS; principal; 2018-11-15)
DX: F10.230 Alcohol dependence with withdrawal, uncomplicated (principal); F11.23 Opioid dependence with withdrawal; F17.213 Nicotine dependence, cigarettes, with withdrawal; F33.1 Major depressive disorder, recurrent, moderate; F41.8 Other specified anxiety disorders; F32.9 Major depressive disorder, single episode, unspecified; Z21 Asymptomatic human immunodeficiency virus [HIV] infection status; G62.9 Polyneuropathy, unspecified; I10 Essential (primary) hypertension; E11.9 Type 2 diabetes mellitus without complications; Z79.84 Long term (current) use of oral hypoglycemic drugs; R76.11 Nonspecific reaction to tuberculin skin test without active tuberculosis
CPT/HCPCS: 36415; 80053; 82962; 85027; 86593

== ENCOUNTER 2023-12-05 13:51 | Inpatient (IN) | payer OTHER ==
[2023-12-05 15:05] VITALS: BMI 22.1
[2023-12-05] MEDS ORDERED: BENZOCAINE/MENTHOL (CHLORASEPTIC ) LOZENGE MM PRN (17:31)
[2023-12-05] MEDS ORDERED: BENZONATATE 200 MG CAPSULE PO PRN (17:31)
[2023-12-05] MEDS ORDERED: guaiFENesin 600 MG TABLET.ER (FP) PO PRN (17:31)
[2023-12-05] MEDS ORDERED: MAGNESIUM HYDROX 2400MG/30ML ORAL SUSPENSION 30 ML CUP PO PRN (17:31)
[2023-12-05] MEDS ORDERED: NICOTINE POLACRILEX 2 MG LOZENGE BC PRN (17:31)
[2023-12-05] MEDS ORDERED: IBUPROFEN 600 MG TABLET (FP) PO PRN (17:31)
[2023-12-05] MEDS ORDERED: ACETAMINOPHEN 325 MG TABLET (FP) PO PRN (17:31)
[2023-12-05] MEDS ORDERED: LOPERAMIDE HCL 2 MG CAPSULE PO PRN (17:31)
[2023-12-05] MEDS ORDERED: NALOXONE (NARCAN) HCL 4 MG/0.1 ML SPRAY NS PRN (17:31)
[2023-12-05] MEDS ORDERED: P-EPHED 60MG/TRIPROLIDI 2.5MG TABLET PO PRN (17:31)
[2023-12-05] MEDS ORDERED: NALOXONE HCL 0.4 MG/ML VIAL IM PRN (17:31)
[2023-12-05] MEDS ORDERED: IBUPROFEN 400 MG TABLET (FP) PO PRN (17:31)
[2023-12-05] MEDS ORDERED: DICYCLOMINE HCL 10 MG CAPSULE PO PRN (17:31)
[2023-12-05] MEDS ORDERED: BISMUTH SUBSALICYLATE 524 MG/30 ML PO PRN (17:31)
[2023-12-05] MEDS ORDERED: ONDANSETRON *ODT* 4 MG TABLET SL PRN (17:31)
[2023-12-05] MEDS ORDERED: POLYETHYLENE GLYCOL (HEALTHYLAX) 3350 17 GM PACKET PO PRN (17:31)
[2023-12-05] MEDS ORDERED: MAG HYDROX/AL HYDROX/SIMETH 30 ML UNIT-DOSE CUP PO PRN (17:31)
[2023-12-05] MEDS ORDERED: methaDONE HCL 10 MG TABLET (FOR DETOX USE ONLY) ONE (18:02)
[2023-12-05] MEDS ORDERED: ASPIRIN 81 MG CHEWABLE TABLETS ONE (18:02)
[2023-12-05] MEDS: ASPIRIN COATED 81 MG TABLET.EC PO SCH (18:08)
[2023-12-05] MEDS: methaDONE HCL 10 MG TABLET (FOR DETOX USE ONLY) PO ONE (18:08)
[2023-12-05] MEDS: cloNIDine HCL 0.1 MG TABLET PO PRN (20:34)
[2023-12-05] MEDS: METHOCARBAMOL 500 MG TABLET PO PRN (20:35)
[2023-12-05] MEDS: MELATONIN 5 MG TABLETS PO SCH (21:47)
[2023-12-05] MEDS: THIAMINE 100 MG TABLET PO SCH (21:47)
[2023-12-06] MEDS: hydrOXYzine PAMOATE 25 MG CAPSULE (FP) PO PRN (05:58)
[2023-12-06] MEDS: methaDONE HCL 10 MG TABLET (FOR DETOX USE ONLY) PO ONE (09:10)
[2023-12-06] MEDS: PRENATAL VITAMINS W/ FOLIC ACID TABLET (FP) PO SCH (09:11)
[2023-12-06 10:29] LABS: HEMATOCRIT 24.7 % (35.4-49); HEMOGLOBIN 7.8 GM/dL (11.7-16.9); MCH 27.2 pg (25.7-33.7); MCHC 31.7 g/dl (32.0-35.9); MEAN CELL VOLUME 85.7 fl (80-96); MEAN PLT VOLUME 7.6 fl (7.5-11.1); PLATELET COUNT 141 10^3/uL (134-434); RBC 2.88 M/mm3 (4.00-5.60); RDW 18.3 % (11.9-15.9)
[2023-12-06 10:34] LABS: POTASSIUM 3.9 mmol/L (3.5-5.1)
[2023-12-06 10:53] LABS: CALCIUM 8.6 mg/dL (8.5-10.1)
[2023-12-06 10:56] LABS: CREATININE 1.9 mg/dL (0.55-1.3)
[2023-12-06 10:58] LABS: BILIRUBIN,TOTAL 0.4 mg/dL (0.2-1); TOT PROT 6.5 g/dl (6.4-8.2)
[2023-12-06 14:53] LABS: IRON SERUM 87 ug/dL (50-175); TOTAL IRON BINDING CAPACITY 185 ug/dL (250-450)
[2023-12-07] MEDS: BICTEGRAV/EMTRICIT/TENOFOV (BIKTARVY) 50-200-25 MG TABLET PO SCH (07:24)
[2023-12-07] MEDS: methaDONE HCL 10 MG TABLET (FOR DETOX USE ONLY) PO ONE (09:50)
[2023-12-07 15:21] LABS: POTASSIUM 3.8 mmol/L (3.5-5.1)
[2023-12-07 15:29] LABS: ALBUMIN 1.9 g/dl (3.4-5.0); BLOOD UREA NITROGEN 18.1 mg/dL (7-18); CALCIUM 8.2 mg/dL (8.5-10.1)
[2023-12-07 15:32] LABS: CREATININE 1.9 mg/dL (0.55-1.3); PHOSPHOROUS 1.6 mg/dL (2.5-4.9)
[2023-12-08] MEDS: methaDONE HCL 10 MG TABLET (FOR DETOX USE ONLY) PO ONE (09:50)
[2023-12-08] MEDS ORDERED: METHOCARBAMOL 500 MG TABLET PO PRN (10:40)
[2023-12-08] MEDS ORDERED: diazePAM 5 MG TABLET PO PRN (10:40)
[2023-12-08] MEDS: hydrOXYzine PAMOATE 25 MG CAPSULE (FP) PO PRN (11:41)
[2023-12-08 12:12] LABS: HEMATOCRIT 25.8 % (35.4-49); HEMOGLOBIN 8.1 GM/dL (11.7-16.9); MCH 27.3 pg (25.7-33.7); MCHC 31.5 g/dl (32.0-35.9); MEAN CELL VOLUME 86.8 fl (80-96); MEAN PLT VOLUME 7.9 fl (7.5-11.1); PLATELET COUNT 174 10^3/uL (134-434); RBC 2.98 M/mm3 (4.00-5.60); RDW 18.5 % (11.9-15.9); WHITE BLOOD COUNT 4.9 K/mm3 (4.0-10.0)
[2023-12-08 16:49] VITALS: RESP 18
[2023-12-08 20:41] VITALS: BP 151/96; PULSE 76; TEMP 98.6
[2023-12-09] MEDS ORDERED: methaDONE HCL 10 MG TABLET (FOR DETOX USE ONLY) PO ONE (06:00)
== END 2023-12-08 17:40 | disposition home or self-care (01) | DRG 773 ==
LOC: YASAS 13:51 → Y3N 18:44
PROVIDERS: ADMIT Allergy & Immunology; ATTEND Surgery
PROC: HZ2ZZZZ Detoxification Services for Substance Abuse Treatment (ICD-10-PCS; principal; 2023-12-05)
DX: F11.23 Opioid dependence with withdrawal (principal); F14.20 Cocaine dependence, uncomplicated; F17.210 Nicotine dependence, cigarettes, uncomplicated; B20 Human immunodeficiency virus [HIV] disease; Z79.899 Other long term (current) drug therapy; I10 Essential (primary) hypertension; N28.9 Disorder of kidney and ureter, unspecified; D64.9 Anemia, unspecified; E73.9 Lactose intolerance, unspecified; R73.03 Prediabetes; R26.89 Other abnormalities of gait and mobility; Z88.2 Allergy status to sulfonamides
CPT/HCPCS: 36415; 71045-TC-FY; 80053; 80069; 80305; 82962; 83540; 83550; 83735; 85027; 86780; 93005; 93010